=== PATIENT | female | born 1955 | race Caucasian/White ===

== ENCOUNTER 2017-08-16 11:33 | Emergency (ER) | payer OTHER ==
[~2017-08-16] VITALS: Ht 152.4 cm; Wt 108.9 kg
[2017-08-16] MEDS ORDERED: EDARBYCLOR 40-1 EACH ORAL (12:02)
--- NOTE | 2017-08-16 12:07 | Emergency Room Report ---
History of Present Illness General Chief Complaint: Chest Pain Source: Patient Present Illness HPI Patient presents with complaints of chest pain heaviness Midsternal Symptoms started yesterday Patient has concomitant nasal congestion and sore throat Pain is 4 out of 10 midsternal Denies any vomiting or diarrhea denies any back or flank pain denies any recent travel denies any pleurisy denies any previous cardiac history or interventions Allergies: Coded Allergies: PENICILLINS (Verified Allergy, Unknown, 08/16/17) Patient History Past Medical History: see triage record Pertinent Family History: none Last Menstrual Period: [place] Now: No Reviewed Nursing Documentation: PMH: Agreed; PSxH: Agreed Nursing Documentation-PMH Hx Hypertension: Yes Review of Systems All Other Systems: negative except mentioned in HPI Physical Exam Vital Signs Date Time Temp Pulse Resp B/P (MAP) Pulse Ox O2 Delivery O2 Flow Rate FiO2 08/16/17 11:38 74 20 151/65 95 Room Air Sp02 EP Interpretation: reviewed, normal General Appearance: well appearing, no apparent distress Head: normocephalic, atraumatic Eyes: bilateral eye PERRL, bilateral eye EOMI ENT: hearing grossly normal, TMs + canals normal, uvula midline, other - Nasal congestion Neck: full range of motion, supple, no meningismus, no bony tend Respiratory: lungs clear, normal breath sounds, no rhonchi, no respiratory distress, no retraction, no accessory muscle use Cardiovascular #1: normal peripheral pulses, regular rate, rhythm, no edema, no gallop, no JVD, no murmur Gastrointestinal: normal bowel sounds, non tender, soft, no mass, no organomegaly, non-distended, no guarding, no hernia, no pulsatile mass, no rebound Genitourinary: no CVA tenderness Musculoskeletal: normal inspection Neurologic: oriented x3, responsive, 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
[2017-08-16 12:19] VITALS: BP 144/56
[2017-08-16 12:32] LABS: EOSINOPHILS % (AUTO) 1.6 % (0.0-3.0); HEMATOCRIT 41.6 % (37.0-47.0); HEMOGLOBIN 13.8 G/DL (12.0-16.0); LYMPHOCYTES % (AUTO) 34.7 % (20.0-45.0); MEAN CORPUSCULAR VOLUME 82 FL (80-99); NEUTROPHILS % (AUTO) 54.7 % (45.0-75.0); PLATELET COUNT 226 K/UL (150-450); RED BLOOD COUNT 5.05 M/UL (4.20-5.40); RED CELL DISTRIBUTION WIDTH 13.9 % (11.6-14.8); WHITE BLOOD COUNT 8.2 K/UL (4.8-10.8)
[2017-08-16 12:53] LABS: ANION GAP 9 mmol/L (5-15); BLOOD UREA NITROGEN 17 mg/dL (7-18); CALCIUM 8.5 MG/DL (8.5-10.1); CARBON DIOXIDE 26 MMOL/L (21-32); CHLORIDE 105 MMOL/L (98-107); CREATININE 0.7 MG/DL (0.55-1.30); POTASSIUM 3.7 MMOL/L (3.5-5.1); SODIUM 140 MMOL/L (136-145)
[2017-08-16 13:10] LABS: ALANINE AMINOTRANSFERASE 26 U/L (12-78); ALBUMIN 3.4 G/DL (3.4-5.0); ALBUMIN/GLOBULIN RATIO 0.8 (1.0-2.7); ALKALINE PHOSPHATASE 42 U/L (46-116); ASPARTATE AMINO TRANSFERASE 25 U/L (15-37); BILIRUBIN,TOTAL 0.6 MG/DL (0.2-1.0); CKMB 0.8 NG/ML (0.0-3.6); CREATINE KINASE 109 U/L (26-308)
[2017-08-16] MEDS ORDERED: ZYRTEC10 MG ORAL (13:24)
[2017-08-16 13:27] VITALS: BP 132/63
--- NOTE | 2017-08-16 13:32 | Diagnostic Imaging Report ---
. Indication: Chest pain Technique: XRAY Chest 1v Comparison: None Findings: Underpenetration, possibly related to large body habitus. Patient also rotated to the right. Within these limitations: Heart is enlarged. Mediastinal contours appear sharp. There is question of mild pulmonary vascular congestion. No focal airspace consolidation, pleural effusion or pneumothorax. There are degenerative changes of the spine. No acute osseous abnormality seen. IMPRESSION: Underpenetration and patient rotation. Within these limitations: Cardiomegaly with probable mild pulmonary vascular congestion. No focal airspace consolidation, pleural effusion or pneumothorax.
[2017-08-16 13:35] VITALS: BP 132/63
--- NOTE | 2017-08-17 16:55 | Cardiology Report ---
APPROVED REPORT EKG Measurement Heart [id number] Normal sinus rhythm Normal ECG
== END 2017-08-16 13:37 | disposition home or self-care (01) ==
LOC: EMR 12:27
DX: R07.9 Chest pain, unspecified (principal); I51.7 Cardiomegaly; R07.0 Pain in throat; I10 Essential (primary) hypertension; Z88.0 Allergy status to penicillin
CPT/HCPCS: 36415; 71045; 80053; 82550; 82553; 83880; 84484; 85025; 93005; 99283

== ENCOUNTER 2018-01-02 14:08 | Emergency (ER) | payer OTHER ==
[~2018-01-02] VITALS: Ht 154.9 cm; Wt 104.3 kg
[~2018-01-02 14:08] MED LIST: EDARBYCLOR 40-1 EACH ORAL; ZYRTEC10 MG ORAL
[2018-01-02 14:18] VITALS: BP 176/77
--- NOTE | 2018-01-02 14:42 | Emergency Room Report ---
History of Present Illness General Chief Complaint: Skin Rash/Abscess Source: Patient Present Illness HPI 70-year-old female with history of hypertension controlled here complaining of one day of pruritic and painful skin rash and skin bullae on the left lower extremity. His fever and chills. Patient does not recall being bit by an insect Denies skin burn, camping, exposures or allergens. Patient has a family member who is the doctor has very been given doxycycline for 1 day according not improved. Denies pain radiation, tingling numbness rating the pain 3 out of 10 intermittent. Denies chest pain, shortness of breath, palpitation associated symptoms Allergies: Coded Allergies: PENICILLINS (Verified Allergy, Unknown, 08/16/17) Patient History Past Medical History: see triage record Past Surgical History: none Last Menstrual Period: unk Reviewed Nursing Documentation: PMH: Agreed; PSxH: Agreed Nursing Documentation-PMH Past Medical History: No History, Except For Hx Hypertension: Yes Review of Systems All Other Systems: negative except mentioned in HPI Physical Exam Vital Signs Date Time Temp Pulse Resp B/P (MAP) Pulse Ox O2 Delivery O2 Flow Rate FiO2 01/02/18 14:12 98.0 81 16 176/77 95 Room Air 98.1 Sp02 EP Interpretation: reviewed, normal General Appearance: normal inspection, well appearing, no apparent distress, alert Head: normocephalic Eyes: bilateral eye normal inspection ENT: normal ENT inspection, normal pharynx Neck: normal inspection, supple Respiratory: normal inspection, no rhonchi, no wheezing Cardiovascular #1: normal inspection, no murmur Gastrointestinal: normal inspection, soft Rectal: deferred Genitourinary: deferred Musculoskeletal: back normal Neurologic: normal inspection, alert, oriented x3 Psychiatric: normal inspection, judgement/insight normal Skin: warm/dry, rash - bullae on left lower extremity Lymphatic: normal inspection, no adenopathy Medical Decision Making PA Attestation diagnosis and treatment plans are reviewed and discussed with supervising physician Dr. Jeter Diagnostic Impression: Primary Impression: Skin bulla Additional Impression: Spider bite ER Course 70-year-old female with history of hypertension controlled here complaining of one day of pruritic and painful skin rash and skin bullae on the left lower extremity. His fever and chills. Patient does not recall being bit by an insect Denies skin burn, camping, exposures or allergens. Patient has a family member who is the doctor has very been given doxycycline for 1 day according not improved. Denies pain radiation, tingling numbness rating the pain 3 out of 10 intermittent. Denies chest pain, shortness of breath, palpitation associated symptoms Ddx considered but are not limited toinfected spider bite, autoimmune disease Vital signs: are WNL, pt. is afebrile H&PE are most consistent withinfected spider bite ORDERS:Bactrim DS, Bactroban, naproxen ED INTERVENTIONS: None required at this time. DISCHARGE: At this time pt. is stable for d/c to home. Will provide printed patient care instructions, and any necessary prescriptions. Care plan and follow up instructions have been discussed with the patient prior to discharge. . Taking doxycycline, Bactrim DS, follow with a primary care provider fever chills return to the emergency room Last Vital Signs Date Time Temp Pulse Resp B/P (MAP) Pulse Ox O2 Delivery O2 Flow Rate FiO2 01/02/18 14:18 98.1 81 16 176/77 95 Room Air 98.1 Disposition: HOME, SELF-CARE Condition: Stable Scripts Loratadine (LORATADINE) 10 Mg Tab.rapdis 10 MG PO DAILY, #30 TAB Prov: Cee Pappas 01/02/18 Mupirocin (BACTROBAN CR) 15 Gm Cream..g. 1 APPLIC TOPIC THREE TIMES A DAY, #40 GM Prov: Cee Pappas 01/02/18 Trimethoprim/Sulfamethoxazole (Bactrim Ds Tablet) 1 Each Tablet 1 TAB ORAL TWICE A DAY for 10 Days, #20 TAB Prov: Cee Pappas 01/02/18 Patient Instructions: Cellulitis, [id number], Spider Bite, [id number] Additional Instructions: take antibiotic as directed. Taking doxycycline as it does not have adequate coverage for urinary infection and follow up with the primary care provider to test for possible autoimmune diseases however the skin infection is most likely secondary to spider bites with bullae formation Cee Pappas Jan 02, 2018 14:42
[2018-01-02] MEDS ORDERED: BACTROBAN15 GM TOPIC (14:45)
[2018-01-02] MEDS ORDERED: LORATADINE10 M1 PO (14:45)
[2018-01-02] MEDS ORDERED: BACTRIM-DS1 EA ORAL (14:45)
[2018-01-02 14:50] VITALS: BP 176/77
== END 2018-01-02 14:30 | disposition home or self-care (01) ==
LOC: EMR 14:28
DX: R23.8 Other skin changes (principal); T63.301A Toxic effect of unspecified spider venom, accidental (unintentional), initial encounter; Y92.9 Unspecified place or not applicable; I10 Essential (primary) hypertension; Z88.0 Allergy status to penicillin
CPT/HCPCS: 99282